=== PATIENT | male | born 1975 | race Two or more races ===

== ENCOUNTER 2024-09-20 03:45 | Emergency (ER) | payer MEDICAID, SELFPAY ==
--- NOTE | 2024-09-20 03:55 | ECG_ITS ---
Test Reason : unresponsive Blood Pressure : */* mmHG Vent. Rate : 84 BPM Atrial Rate : 84 BPM P-R Int : 156 ms QRS Dur : 100 ms QT Int : 400 ms P-R-T Axes : 64 -4 35 degrees QTcB Int : 472 ms Normal sinus rhythm Normal ECG No previous ECGs available Referred By: Shyla Meade Electronically Signed By: JOSE SPENCER MD
[2024-09-20 03:56] VITALS: BP 104/60; BP 140/80; PULSE 72; PULSE 82; RESP 16; TEMP 36.4; O2SAT 96; O2SAT 98; BMI 25.1
--- NOTE | 2024-09-20 03:57 | ED_ITS ---
HPI - General Adult General Chief complaint: ETOH/Substance Use Stated complaint: ETOH USE,FOUND UNCONS OUTSIDE BY PD Time Seen by Provider: 09/20/24 04:00 Source: EMS and police Mode of arrival: EMS Limitations: other History of Present Illness ED Provider: Dr. Shyla Meade HPI narrative: Patient comes to the emergency room via ambulance. According to EMS, earlier today they saw the patient walking around, seemed intoxicated. When EMS arrived, patient was lying on the floor on the grass, it was difficult to wake him up, patient had to be sternal rub. On arrival, patient seems to only speak Chinese, the only thing the patient keeps saying is ?I am sorry . Patient is Chinese speaking only. Patient denies any injuries. Denies any headache or neck pain. Related Data Allergies Allergy/AdvReac Type Severity Reaction Status Date / Time Unable to Assess Allergy Verified 09/20/24 04:05 Review of Systems 2 Review of Systems: Yes Other PMFSH Social History Social History Smoked in Last 30 Days: No Use of substances other than those prescribed or required for medical reasons: No Advance Directives: No Advance Directives Information Provided: Yes Do you have a plan to hurt others: No Plan Physical Exam ED Vital Signs: Vital Signs - 24 hr 09/20/24 03:56 09/20/24 06:35 Temperature 97.6 F 98.2 F Pulse Rate 82 96 Respiratory Rate 16 20 Blood Pressure 104/60 128/80 Pulse Oximetry 98 94 Oxygen Delivery Method Room Air Room Air BMI result Body Mass Index 25.1 Const Other: Appearance: Alert. Patient awake, be compliant but seems to intoxicated, no signs of trauma Eyes: Pupils equal, round and reactive to light. ENT: Pharynx normal. Neck: Normal inspection. Neck supple. No lymph nodes noted. No crepitus CVS: Normal heart rate and rhythm. Pulses normal. Normal S1 and S2 Respiratory: No respiratory distress. Breath sounds normal. No Wheezing. No rales Abdomen: Soft and nontender. No rigidity. No distention. Skin: Skin cool to touch and dry. Normal skin color. Normal skin turgor. Extremities: No lower extremity edema. No Lacerations. No Rash Neuro: No slurred speech. CN 2 through 12 grossly intact Psych: calm, intoxicated Course Course Course Narrative: All of patient's labs and imaging pending EKG pending Patient nauseous, vomiting, given p.o. Zofran. Medications Administered Generic Name Dose Route Start Last Admin Trade Name Freq PRN Reason Stop Dose Admin Lactated Ringer's 2,000 mls @ 999 mls/hr 09/20/24 05:45 09/20/24 06:34 Lr IV 09/20/24 07:45 999 mls/hr .Q2H1M DARION Administration Discontinued Medications Generic Name Dose Route Start Last Admin Trade Name Freq PRN Reason Stop Dose Admin Ondansetron HCl 4 mg 09/20/24 04:14 09/20/24 04:33 Ondansetron Odt 4 Mg Tab.Darcydis TRANSLINGU 09/20/24 04:15 4 mg ONCE ONE Administration Medical Decision Making Medical Decision Making [facility] Narrative: After receiving Zofran, patient no longer vomiting. EKG: Normal sinus rhythm, heart rate 84, no ST segment depression or elevation, no T-wave inversion, QTC 472 My interpretation of labs: Patient's white blood cell count 12, likely reactive leukocytosis, no obvious source of infection. Chemistry shows an anion gap of 21, patient receiving IV fluids, likely secondary to alcohol intoxication. LFTs normal, troponin <2.7, ETOH 258 Patient's vitals are stable Patient calm, cooperative, sleeping comfortably but wakes up easily. Plan: Metabolize to freedom Physician observation started at 05:39 At this time, 6 04:00, patient is much more awake, alert and oriented x3. Patient's history is at bedside. Patient and sister explain that today they had a libertarian for a friend, patient usually does not drink, today he drank and got drunk very fast Patient states that he feels well, has no complaints. Patient willing to stay until he finishes his fluids and then his asking to be discharged home. Patient denies SI or HI. Patient apologizing for tonight's events. Differential Diagnosis Differential Diagnoses: The differential diagnosis associated with the presentation includes (Polysubstance abuse, alcohol abuse) Admission/Observation Consideration of admission/observation: Escalation of care including admission/observation considered (Patient is under physician observation waiting to become sober) Lab Data [facility] Lab Attestation statement: I reviewed the patient's lab results. 09/20/24 04:42 09/20/24 04:42 Labs: Lab Results 09/20/24 Range/Units 04:42 WBC 12.0 H (4.8-10.8) X10*3/uL RBC 5.37 (4.60-5.80) X10*6/uL Hgb 15.1 (14.0-18.0) g/dl Hct 42.9 (42.0-52.0) % MCV 79.9 L (80.0-98.0) fL MCH 28.1 (27.0-33.0) pg MCHC 35.2 (31.0-36.0) g/dl RDW 13.4 (11.0-16.0) % Plt Count 242 (160-400) X10*3/uL MPV 10.0 (9.4-12.4) fL Immature Gran % (Auto) 1.0 H (0.0-0.4) % Neut % (Auto) 74.5 H (45-73) % Lymph % (Auto) 21.1 (20-40) % [place] % (Auto) 2.8 (2-11) % Eos % (Auto) 0.1 (0-4) % Baso % (Auto) 0.5 (0-2) % Lymph # (Auto) 2.5 (1.2-4.9) X10*3/uL [place] # (Auto) 0.3 (0.1-1.2) X10*3/uL Eos # (Auto) 0.0 (0.0-0.4) X10*3/uL Baso # (Auto) 0.1 (0.0-0.2) X10*3/uL Abs Immat Gran (auto) 0.12 H (0.00-0.03) X10*3/uL Absolute Neuts (auto) 9.0 H (2.0-8.3) x10*3/uL Absolute Nucleated RBC 0.000 (0.0-0.012) X10*3/uL Nucleated RBC % (auto) 0.0 (0.0-0.2) /100WBC Sodium 141 (135-145) mmol/L Potassium 3.4 (3.3-5.1) mmol/L Chloride 106 (96-108) mmol/L Carbon Dioxide 17 L (22-29) mmol/L Anion Gap 21 H (12-20) BUN 15 (9-16) mg/dL Creatinine 0.82 (0.5-1.4) mg/dL Estim Creat Clear Calc 99.6 Estimated GFR > 60 Random Glucose 132 H (60-115) mg/dL Calcium 9.2 (8.4-10.2) mg/dL Magnesium 2.4 (1.6-2.6) mg/dL Total Bilirubin 0.2 (0.0-1.0) mg/dL Direct Bilirubin < 0.2 (0.0-0.5) mg/dL AST 31 (5-37) U/L ALT 32 (0-40) U/L Alkaline Phosphatase 55 (39-117) U/L Troponin I High Sens < 2.7 (<3.5-35.0) ng/L B-Natriuretic Peptide < 10 (<100) pg/mL Total Protein 8.1 H (6.5-8.0) g/dL Albumin 4.8 (3.5-5.0) g/dL Ethyl Alcohol 258 mg/dL Independent Interpretation I performed an independent interpretation of an: EKG Critical Care Time Critical Care Time Critical Care Time: Yes Total Critical Care Time: 35 Attestation: I have personally provided critical care time. Time includes review of lab data, radiology results, discussion with consultants, and monitoring for potential decompensation. Intervention performed as documented. Discharge Plan Discharge Clinical Impression: Alcoholic intoxication Patient Disposition: Home, Self-Care Instructions: Alcohol Intoxication (ED) Additional Instructions: Please follow-up with your primary care physician tomorrow. If you have any worsening or new symptoms, please return to the emergency room or call 911 Alcohol use disorder You were seen in the Emergency Department today for treatment of alcohol use disorder.? You may have been given medications to help with your withdrawal symptoms.? Please do not drink alcohol with them. This is very dangerous and can cause respiratory depression or other adverse reactions depending on the medication. If you would like to cut down or stop your alcohol use please consider calling our outpatient Addiction Treatment office:? [facility] [[email or web address]] (M-F [id number]) [address] [place] [address] ? You have also been given a list of treatment providers in the area that can assist as well.? If you experience seizures, vomiting blood, black stools, falls, severe headache, chest pain, fevers, trouble breathing, hallucinations or any other concerns you need to call 911 or seek immediate care. Please stay hydrated. Print Language: Chinese
[2024-09-20] MEDS: Ondansetron ODT 4 MG TAB.RAPDIS TRANSLINGU (04:33)
[2024-09-20 04:54] LABS: Basophils Absolute Auto 0.1 X10*3/uL (0.0-0.2); Basophils Percent Auto 0.5 % (0-2); Eosinophils Percent Auto 0.1 % (0-4); Hematocrit 42.9 % (42.0-52.0); Hemoglobin 15.1 g/dl (14.0-18.0); Imm Gran Abs Auto 0.12 X10*3/uL (0.00-0.03); Lymphocytes Absolute Auto 2.5 X10*3/uL (1.2-4.9); Lymphocytes Percent Auto 21.1 % (20-40); MANUAL DIFF FLAG NO; Mean Corpuscular HGB Conc 35.2 g/dl (31.0-36.0); Mean Corpuscular Hemoglobin 28.1 pg (27.0-33.0); Mean Corpuscular Volume 79.9 fL (80.0-98.0); Monocytes Absolute Auto 0.3 X10*3/uL (0.1-1.2); Monocytes Percent Auto 2.8 % (2-11); Neutrophils Percent Auto 74.5 % (45-73); Platelet Count 242 X10*3/uL (160-400); Red Blood Count 5.37 X10*6/uL (4.60-5.80); Red Cell Distribution Width 13.4 % (11.0-16.0)
[2024-09-20 05:15] LABS: B Type Natriuretic Peptide < 10 pg/mL (<100); Troponin-I High Sensitivity < 2.7 ng/L (<3.5-35.0)
[2024-09-20 05:17] LABS: Alanine Aminotransferase 32 U/L (0-40); Albumin Level 4.8 g/dL (3.5-5.0); Alkaline Phosphatase 55 U/L (39-117); Anion Gap 21 (12-20); Aspartate Amino Transferase 31 U/L (5-37); Bilirubin Direct < 0.2 mg/dL (0.0-0.5); Bilirubin Total 0.2 mg/dL (0.0-1.0); Blood Urea Nitrogen 15 mg/dL (9-16); Calcium 9.2 mg/dL (8.4-10.2); Carbon Dioxide 17 mmol/L (22-29); Chloride 106 mmol/L (96-108); Creatinine Clr Calc Pharmacy 99.6; Estimated Glomerular Filt Rate > 60; Ethanol 258 mg/dL; Glucose Random 132 mg/dL (60-115); Magnesium 2.4 mg/dL (1.6-2.6); Potassium 3.4 mmol/L (3.3-5.1); Sodium 141 mmol/L (135-145); Total Protein 8.1 g/dL (6.5-8.0)
[2024-09-20] MEDS: Lactated Ringers 2,000 ML 999 ML IV (06:34)
[2024-09-20 06:35] VITALS: BP 128/80; PULSE 96; RESP 20; TEMP 36.8; O2SAT 94
[2024-09-20 07:58] VITALS: BP 128/80; PULSE 96; RESP 20; TEMP 36.8; O2SAT 94
[2024-09-20 08:01] LABS: Appearance Urine Clear; Color Urine Yellow; Glucose Urine UA Negative (Negative); Leukocyte Esterase Urine Negative (Negative); Nitrite Urine Negative (Negative); Urine Blood Negative (Negative); Urine Ketones Trace mg/dL (Negative); Urine Protein Negative (Neg-Trace)
[2024-09-20 08:13] LABS: Amphetamine Screen Urine Not Detected (Not Detect); Barbiturates, Urine Not Detected (Not Detect); Benzodiazepines Screen Urine Not Detected (Not Detect); Buprenorphine Scr Not Detected (Not Detect); Cannabinoid Screen Urine Not Detected (Not Detect); Cocaine Screen Urine Not Detected (Not Detect); Fentanyl, urine Not Detected (Not Detect); Methadone Screen, Urine Not Detected (Not Detect); Opiate Screen Urine Not Detected (Not Detect); Oxycodone Screen Urine Not Detected (Not Detect); Phencyclidine Screen Urine Not Detected (Not Detect)
== END 2024-09-20 08:12 | disposition home or self-care (01) ==
PROVIDERS: Emergency Provider Emergency Medicine
DX: F10.129 Alcohol abuse with intoxication, unspecified (principal); Y90.8 Blood alcohol level of 240 mg/100 ml or more
CPT/HCPCS: 36415; 80048; 80076; 80307; 81003; 83735; 83880; 84484; 85025; 93005; 96360; 99284; J7120

== ENCOUNTER → 2024-09-20 03:55 | Outpatient (BNV) | payer SELFPAY | PROVIDERS: Emergency Provider Emergency Medicine; Visit Provider Internal Medicine Cardiovascular Disease | DX: Z13.6 Encounter for screening for cardiovascular disorders (principal) | CPT/HCPCS: 93010 ==